=== PATIENT | male | born 2005 | race Caucasian/White ===

== ENCOUNTER 2025-08-11 23:36 | Emergency (ER) | payer OTHER, SELFPAY ==
[2025-08-11 23:37] VITALS: BP 136/108; PULSE 74; RESP 18; TEMP 38.1; O2SAT 96; BMI 21.5
[2025-08-12] MEDS: 0.9% Normal Saline (1000mL) 1,000 ML 1000 ML IV (00:16)
--- NOTE | 2025-08-12 00:29 | EDS_ITS ---
HPI History of Present Illness Chief Complaint: Fever Narrative Narrative: Chief complaint and HPI: 19-year-old male who is up-to-date on vaccines with no significant past medical history presents for evaluation of bodyaches, headache, decreased p.o. intake, diarrhea, and fever. Onset of symptoms 2 days. Patient describes his headache as pressure and located frontally and behind the eyes. States at times he has had some light sensitivity. Denies any sound sensitivity. Patient states he has had little to eat or drink secondary to no appetite. However he states that he did eat fast food chicken nuggets today. States he has been intermittently lightheaded when moving too quickly from getting up or moving his head too quickly. He denies any nasal congestion, sore throat, ear pain, cough, neck pain, shortness of breath, chest pain, abdominal pain, dysuria. Review of systems: See HPI Medications: As listed on the chart Allergies: As listed on the chart PFSH: Per chart Vital signs: As listed on the chart. Reviewed. Physical exam: Gen: A&O x3, NAD and nontoxic-appearing Head: Normocephalic, atraumatic Eyes: No sclera icterus, conjunctiva clear, PERRL, EOMI ENT: TMs clear BL, moist mucous membranes, posterior oropharynx mildly erythematous, uvula midline, tonsils not enlarged, no tonsillar exudates, no sinus tenderness Neck: Trachea midline, Full ROM, No meningismus CV: RRR, no murmurs Resp: Lungs CTA BL, no w/r/c GI: Abd soft, non-distended, non-tender, no r/r/g Musc: Full ROM, no deformity Skin: Warm, dry, no rash Neuro: Alert, oriented, grossly intact, sensation intact Psych: Cooperative, appropriate mood and affect PFS PFS Medical History no medical history Home Medications ?Medication ?Instructions ?Recorded ?Last Taken ?Type cetirizine 10 mg tablet (24Hour 10 mg PO DAILY PRN all ergy symptoms 08/11/25 Unknown History Allergy) Allergy/AdvReac Type Severity Reaction Status Date / Time No Known Allergies Allergy Verified 08/11/25 23:37 Family History no significant family his Surgical History no surgical history Social History Smoking Status: Never smoker EXAM Physical Exam Const Vital Signs: 08/11/25 23:37 08/11/25 23:40 Temperature 100.5 F H Temperature Source Oral Pulse Rate 74 Respiratory Rate 18 Respiratory Effort Normal Respiratory Pattern Normal Blood Pressure 136/108 H Blood Pressure Mean 117 Pulse Ox 96 Oxygen Delivery Method Room Air MDM MDM MDM Narrative Medical decision making narrative: 19-year-old male who is up-to-date on vaccines with no significant past medical history presents for evaluation of bodyaches, headache, decreased p.o. intake, diarrhea, and fever. Onset of symptoms 2 days. Patient states he has had little to eat or drink secondary to no appetite. He denies any nasal congestion, sore throat, ear pain, cough, neck pain, shortness of breath, chest pain, abdominal pain, dysuria. Differential diagnosis includes but is not limited to viral illness including COVID and influenza, electrolyte abnormality, dehydration, gastroenteritis. NS bolus, Zofran, Toradol ordered for symptoms. Given patient has no cough or shortness of breath I do not think any chest x-ray is needed. Patient has no meningismus on exam. NS bolus, Toradol, Zofran ordered for symptoms. Laboratory workup ordered. CBC with leukopenia of 2.6. This can be seen with viral illnesses. Platelets and hemoglobin unremarkable. BMP unremarkable without WISAM. COVID, flu, RSV negative. On reevaluation, patient states his headache has improved and basically resolved. He was able to ambulate in the emergency department without difficulty or lightheadedness. He was able to tolerate p.o. intake. His fever has resolved. Patient was updated of all the results. Patient's symptoms are likely secondary to viral etiology. Return back to ED if symptoms change or worsen. Follow-up with primary care physician. He confirmed understanding of the plan. Patient able to discharge home. Impression: 1. Viral syndrome 2. Headache Lab Data Labs: Laboratory Results - last 24 hr 08/12/25 00:15 WBC 2.6 L RBC 4.90 Hgb 15.0 Hct 42.6 MCV 86.9 MCH 30.6 MCHC 35.2 RDW Std Deviation 39.2 RDW Coeff of Manuel 12.2 Plt Count 183 MPV 9.9 Immature Gran % (Auto) 0.000 Neut % (Auto) 69.7 Lymph % (Auto) 14.6 L Cole % (Auto) 13.1 H Eos % (Auto) 1.1 Baso % (Auto) 1.5 H Absolute Neuts (auto) 1.9 L Absolute Lymphs (auto) 0.39 L Nucleated RBC % 0 Sodium 136 Potassium 3.4 Chloride 103 Carbon Dioxide 19.1 L Anion Gap 14 BUN 10 Creatinine 1.06 Estim Creat Clear Calc 95.14 Est GFR (MDRD) Non-Af 103 BUN/Creatinine Ratio 9.6 L Glucose 122 H Calcium 9.0 Discharge Plan Triage Chief Complaint: Fever ED Provider: Alhaji Osorio Dx/Rx/DC Orders Clinical Impression: Viral syndrome, Headache Instructions: ED Viral Syndrome (Adult) Prescriptions: No Action cetirizine [24Hour Allergy] 10 mg tablet 10 mg PO DAILY PRN (Reason: allergy symptoms) Primary Care Provider: Care Physician,No Primary Referrals: Evangelist Soliman MD [Med Staff - Active Staff, Family Practice] - 3-5 Days Activity Restrictions/Additional Instructions: You received Toradol here in the emergency department, no ibuprofen or 8 hours. Okay for Tylenol. Make sure you are eating and drinking. Follow-up with primary care physician. Your white blood cell count was low here in the emergency department, likely secondary to virus however need to follow-up with your doctor for this. Return back to ED if symptoms change or worsen. Print Language: Trinidadian Disposition Disposition: Home, Self Care
[2025-08-12 00:35] LABS: Hematocrit 42.6 % (40-54); Hemoglobin 15.0 g/dL (13.0-16.5); Mean Corp Hgb Conc 35.2 g/dL (32-36); Mean Corpuscular Volume 86.9 fL (80-94); Mean Platelet Vol. 9.9 fl (6.2-12.0); Platelet Count 183 K/mm3 (150-450); RBC Distribution Width CV 12.2 % (11.6-14.6); RBC Distribution Width SD 39.2 fl (35.1-43.9); Red Blood Count 4.90 M/mm3 (4.6-6.2); White Blood Count 2.6 K/mm3 (4.4-11.0)
[2025-08-12 00:49] LABS: Anion Gap 14 (5-15); BUN 10 mg/dL (4-19); BUN/Creat Ratio 9.6 RATIO (10-20); Calcium,Total 9.0 mg/dL (7.6-11.0); Carbon Dioxide 19.1 mmol/L (21.0-32.0); Chloride 103 mmol/L (98-108); Estimated Creatinine Clearance 95.14 ml/min (50-250); Glucose 122 mg/dL (70-99); Potassium 3.4 mmol/L (3.3-5.1)
[2025-08-12 00:59] LABS: Immature Granulocytes Count 0.000 X10^3/uL (0.0-0.0); NRBC Flagged by Analyzer 0 % (0-5); POSITIVE DIFFERENTIAL YES
[2025-08-12 01:01] LABS: Differential Indicated SCAN CRITERIA MET
[2025-08-12 01:30] VITALS: BP 129/65; PULSE 61; RESP 16; TEMP 37.1; O2SAT 96
[2025-08-12 01:42] LABS: Neutrophil-Band 2 % (0-5); Neutrophil-Segmented 70 % (47-70); Total Cells Counted 100 (MANUAL DIFF)
[2025-08-12 01:43] LABS: Reactive Lymphocyte 1+
[2025-08-12 01:45] LABS: Differential Comment SCANNED; Red Cell Morphology NORM C+C NORMAL (NORM C&C)
[2025-08-12 01:46] LABS: Scan Smear per Review Criteria MANUAL DIFF
== END 2025-08-12 01:44 | disposition home or self-care (01) ==
PROVIDERS: Emergency Provider Surgery; Visit Provider Surgery
DX: B34.9 Viral infection, unspecified (principal); R51.9 Headache, unspecified
CPT/HCPCS: 80048; 85025; 87631; 96361; 96374; 96375; 96376; 99285; A4216; J2405